=== PATIENT | male | born 1995 | race African-American/Black ===

== ENCOUNTER 2022-11-10 09:25 | Emergency (ER) | payer SELFPAY ==
[2022-11-10] VITALS (26 sets, daily range): BP systolic 120–132; BP diastolic 58–90; PULSE 62–92; RESP 11–26; TEMP 36.8; O2SAT 93–100
[2022-11-10] MEDS: Buprenorphine/Naloxone 2 mg/0.5 mg FILM 1 EACH SL (09:46)
[2022-11-10] MEDS: ACETAMINOPHEN 1,000 MG/100 ML BTL 400 MG IVPB (10:03)
[2022-11-10] MEDS: Ondansetron 4 MG/2 ML VIAL IVP (10:03)
[2022-11-10] MEDS: Ketorolac 15 MG/ML VIAL IVP (10:03)
[2022-11-10] MEDS: Normal Saline 1,000 ML 1000 ML IV (10:04)
--- NOTE | 2022-11-10 10:13 | W.ED.GENAD ---
Discharge Plan Disposition Patient Disposition: Home Discharge Details Clinical Impression: Acute opioid withdrawal Primary Care Provider: None,None ED Provider: Maria Antonia Pillai Home Meds and New Rx's Prescriptions: New ondansetron 4 mg tablet,disintegrating 4 mg PO Q8-10H 4 Days Qty: 12 0RF Discharge Instructions Additional Instructions: Please follow-up with [facility] on Saturday, they like to meet with you in the office and get you established with resources Call the [facility] clinic or go to the clinic to establish care for opioid treatment Zofran as needed for nausea and vomiting Please refer to resources from nurse wound care today and return earlier should you have new or worsening complaints Referrals: [facility] [Provider Group] [facility] [Outside] - 1 day [facility] [Outside] - 1 day Discharge Data Discharge Date/Time-TO BE ENTERED AT DEPARTURE: 11/10/22 12:56 Medical Decision Making 27-year-old gentleman in acute opioid withdrawal, fully alert and oriented, will initiate cane and recovery, Suboxone sublingual, Toradol, Zofran, fluids At time of reassessment, patient looks markedly improved and feels comfortable discharge home Unfortunately this patient has significant lack of resources and no telephone access I did speak with [facility] recovery and they would like to see him on Saturday in the office, he will try to take RCT bus for assessment I also tried to call the [facility] clinic to establish care, they were not available readily on the weekend and so patient will be encouraged to call the [facility] clinic to establish care on Saturday, he will return tomorrow for another dose of sublingual Suboxone He was given a prescription for Zofran for home Our nurse wound care was involved to supply patient with resources for transportation, food, and longterm Patient has been calm, cooperative, and attentive throughout this encounter He will follow-up closely and return earlier should he have new or worsening complaints Medical Records Medical records reviewed: Yes I reviewed the patient's medical records. HPI General Date/Time Provider Initiated Documentation: 11/10/22 09:31. HPI Narrative: This 27-year-old male presents with report of acute fentanyl withdrawal. Patient states he uses approximately 6 bags daily, last use was last evening. He states this is greater than 12 hours ago and this morning awoke with chills, nausea, malaise. He denies any chest pain or shortness of breath. He has not vomited or had diarrhea per patient. He reports that he smokes and does not inject and denies any additional illicit drug use or alcohol. Related Data Home Medications Medication Instructions Recorded Confirmed ondansetron 4 mg disintegrating 4 mg PO Q8-10H 4 days #12 tabs 11/10/22 tablet Previous Rx's Medication Instructions Recorded ondansetron 4 mg disintegrating 4 mg PO Q8-10H 4 days #12 tabs 11/10/22 tablet Allergies Allergy/AdvReac Type Severity Reaction Status Date / Time No Known Allergies Allergy Verified 11/10/22 10:29 General Stated Complaint: DrugWithdr/MAT MOSHE: 3 PFSH All Active Problems (Updated 11/10/22 @ 12:37 by MOLLY Amezcua) Acute opioid withdrawal (Acute) Social History Smoking/Tobacco Use Status: Current-Occasional Tobacco Type: cigarettes Smoking risk assessment performed?: Yes Alcohol Intake: never Drug use: Daily Substance use type: marijuana, heroin, amphetamines, opiates, club/senior product designer drugs and other Details: Pt last smoked heroin/fentanyl last night around 10pm. is here for heroin withdrawal. Additional Social history: Pt states he is homeless, staying outside. Pt states he does not have people around to help Exam Const General: cooperative, comfortable and acute distress Eyes Pupils: PERRL Resp Effort & Inspection: normal respiratory effort Auscultation: clear to auscultation bilaterally Cardio Rate: regular rate Rhythm: regular rhythm Skin Other: diaphoretic Neuro General: patient alert and patient oriented x3 Cranial Nerves: CN's II-XI intact bilaterally Cognition: normal cognition Speech: speech normal Course Vital Signs Vital signs: Vital Signs Temperature 36.8 C 11/10/22 09:18 Pulse 67 11/10/22 09:18 Respiratory Rate 14 11/10/22 09:18 Blood Pressure 132/79 11/10/22 09:18 Pulse Oximetry 100 11/10/22 09:18 Temperature 36.8 C 11/10/22 09:18 Temperature Source Oral 11/10/22 09:18 Pulse 67 11/10/22 09:18 Respiratory Rate 14 11/10/22 09:18 Blood Pressure 132/79 11/10/22 09:18 Blood Pressure Position Supine 11/10/22 09:18 Pulse Oximetry 100 11/10/22 09:18 Oxygen Delivery Method Room Air 11/10/22 09:18 Oxygen Flow Rate 0 11/10/22 09:18
--- NOTE | 2022-11-10 11:36 | NUR.NOTE ---
Nursing Note: Timmy from [facility] called after speaking with the pt. pt is interested in detoxing as an outpaient and discussed referral to [facility]. There was a discussion about the patient working with a substance abuse counselor at [facility]. The pt is interested in trying to go through [facility]. portable phone provided to the pt to place a call.
--- NOTE | 2022-11-10 12:45 | CMPROGNOTE_ITS ---
- If Service Date Differs Date of service: 11/10/22 Time of Service: 12:45 Care Management Progress Note Megha was seen in the ER today and is ready for discharge. CM was notified by ER provider that Megha has been without housing for an extended period of time. Pt is reportedly familiar with [facility], but has been unsuccessful reaching a [employer] electric cutter operator when he calls. CM provided Megha with resources for [employer], [employer], [employer] and waited with pt until he was able to personally speak with a [facility] electric cutter operator. Megha is encouraged to go to [facility] Saturday for additional help with resources, if needed.
== END 2022-11-10 12:56 | disposition home or self-care (01) ==
PROVIDERS: Emergency Provider Physician Assistant
DX: F11.23 Opioid dependence with withdrawal (principal); R61 Generalized hyperhidrosis
CPT/HCPCS: 96361; 96365; 96375; 99284; J0131; J1885; J2405

== ENCOUNTER 2024-04-07 10:51 | Emergency (ER) | payer MEDICAID, SELFPAY ==
[2024-04-07 10:57] VITALS: BP 136/82; PULSE 88; RESP 14; TEMP 37.5; O2SAT 99
[2024-04-07] MEDS: Acetaminophen 500 MG TAB 1000 MG PO (11:14)
[2024-04-07] MEDS: Ibuprofen 600 MG TAB PO (11:14)
--- NOTE | 2024-04-07 11:50 | DI.RAD_ITS ---
Exam(s) XR WRIST LT COMPLETE EXAM: XR WRIST LT COMPLETE CLINICAL HISTORY: WRIST PAIN. TECHNIQUE: 2D digital imaging was performed of the left wrist. Three images were obtained. PA, obl ique and lateral views were obtained. COMPARISON: No exams were available for comparison FINDINGS: BONES: No acute fracture is present. No bony destructive lesion is seen. 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 JOINTS: The carpal bones are normally aligned. SOFT TISSUE: Normal. IMPRESSION: No acute abnormality. DATA REPOSITORY: RADIATION DOSE DELIVERED:
--- NOTE | 2024-04-07 11:51 | DI.RAD_ITS ---
Exam(s) XR SHOULDER RT COMPLETE 2+V EXAM: XR SHOULDER RT COMPLETE 2+V CLINICAL HISTORY: SHOULDER PAIN. TECHNIQUE: 2D digital imaging was performed of the right shoulder. Four images were obtained. AP, Grashey, Y-view and axillary views were obtained. COMPARISON: No exams were available for comparison FINDINGS: BONES: No acute fracture is present. No bony destructive lesion is seen. JOINTS: No dislocation present. The joint spaces are well maintained. SOFT TISSUE: Normal. IMPRESSION: Unremarkable radiographs of the right shoulder. DATA REPOSITORY: RADIATION DOSE DELIVERED:
[2024-04-07 12:11] VITALS: RESP 18
--- NOTE | 2024-04-07 15:10 | ED.GENADUL_ITS ---
Discharge Plan Disposition Patient Disposition: Home Condition: Stable Discharge Details Clinical Impression: Left wrist pain, Pain in right shoulder Primary Care Provider: None,None ED Provider: Laya Boogie Home Meds and New Rx's Prescriptions: No Action No Known Home Meds Discharge Instructions Instructions: Joint Pain Additional Instructions: * There is no sign of trauma dislocation injury or infection. Please continue Motrin and Tylenol as needed HPI General Date/Time Provider Initiated Documentation: 04/07/24 11:08 . Limitations to Documentation: no limitations . Information obtained by: patient . HPI Narrative: 29-year-old gentleman with known medical history presents for evaluation of right shoulder pain and left hand pain. He reports acute onset of symptoms yesterday at 7 PM. He states that he was driving in a car and all of the sudden he had this severe pain in his left hand. It is associated with a red discoloration and a lump. He states that he cannot move it. He reports that he has dislocated his right shoulder though he denies any trauma. He states that it just happened. No medications given prior to arrival. He denies any trauma. Denies any fever chills or other concerns for infection. Related Data Home Medications ?Medication ?Instructions ?Recorded ?Confirmed Unknown [No Known Home Meds] 04/07/24 04/07/24 Allergies Allergy/AdvReac Type Severity Reaction Status Date / Time No Known Allergies Allergy Verified 04/07/24 11:00 General Stated Complaint: Trauma MOSHE: 3 Exam Narrative Exam Narrative: Review of Systems: All systems reviewed & are unremarkable except as noted in HPI and below Patient refusing to move arms, but will scream before I even touch him NCAT PERRL, normal conjunctiva RRR Unlabored respiratory effort clear bilaterally The right shoulder has a full range of motion, there is no dislocation or deformity appreciated, his right upper extremity is neurovascularly intact with sensation intact throughout The left hand is noted to be held in an unnatural position when he tells me that it is hurting, but during the examination and discussion, he will move it freely and use it to reposition himself or support himself on the bed without any discomfort. He points to a nonexistent bump that is not palpable or visualized by me, he is also indicating redness on his hand which appears to be discoloration consistent with a magic marker Course Vital Signs Vital signs: Vital Signs Temperature 37.5 C 04/07/24 10:57 Pulse 88 04/07/24 10:57 Respiratory Rate 14 04/07/24 10:57 Blood Pressure 136/82 04/07/24 10:57 Pulse Oximetry 99 04/07/24 10:57 Temperature 37.5 C 04/07/24 10:57 Pulse 88 04/07/24 10:57 Respiratory Rate 18 04/07/24 12:11 Respiratory Effort Normal 04/07/24 11:04 Blood Pressure 136/82 04/07/24 10:57 Blood Pressure Position Sitting 04/07/24 10:57 Pulse Oximetry 99 04/07/24 10:57 Oxygen Delivery Method Room Air 04/07/24 10:57 Oxygen Flow Rate 0 04/07/24 10:57 Pain Level 10 04/07/24 10:57 Medical Decision Making Evaluation of atraumatic right shoulder and left hand pain. The patient reports that his shoulder was dislocated and that it he cannot move his hand. On examination, the shoulder is not dislocated and I have no signs or suspicion for traumatic injury or any infectious etiology given his normal vital signs and normal examination. His left hand does appear to have skin discoloration consistent with a magic marker, but not with cellulitis or other infectious etiology. He has no joint swelling or deformity of the wrist. He is using the bilateral upper extremities normally when he is distracted. I have run the [facility] ent's [employer] and noted that he has had practice that he injections for opiates, and I suspect that there is a component of drug-seeking behavior. I have no suspicion neurologic etiology. X-rays of the right shoulder and the left wrist were obtained given the patient's pain out of proportion on examination. Radiology reports were reviewed and and these are unremarkable for any acute bony process. Patient was provided Tylenol and Motrin for pain. Recommend that he continue this at home. At this time no emergent findings are identified. At the time of discharge, the patient became agitated, clearly using both hands, and refused to sign paperwork at the insistence of his girlfriend who was on the phone demanding that he get an MRI because he is obviously having a stroke. The patient required removal from the emergency department by security Quality:[facility] Health Related Social Needs: No Data to Display PFSH All Active Problems Pain in right shoulder (Acute) Left wrist pain (Acute) Social History Smoking/Tobacco Use Status: Current-Occasional Tobacco Type: cigarettes Smoking risk assessment performed?: Yes Alcohol Intake: never Drug use: Daily Substance use type: marijuana, heroin, amphetamines, opiates, club/freelance web designer drugs and other Details: Pt last smoked heroin/fentanyl last night around 10pm. is here for heroin withdrawal. Additional Social history: Pt states he is homeless, staying outside. Pt states he does not have people around to help PAWSS Have you Been Recently Intoxicated or Drunk Within the Last 30 days?: No Have you Ever Experienced Previous Episodes of Alcohol Withdrawal?: No Have you ever Experienced Withdrawal Seizures?: No Have you ever Experienced Delirium Tremens(DT)s?: No Have you ever undergone Alcohol Rehabilitation Treatment (i.e, inpt ot outpatient treatment programs)?: No Have you ever Experienced Blackouts?: No Have you ever Combined Alcohol with other Downers within the last 90 days?: No Have you ever Combined Alcohol with any other Substance of Abuse during the last 90 days?: No Positive Blood Alcohol level on Presentation? [PCS.BAL]: No Evidence of Increased Autonomic Activity (i.e. HR>120, tremor, sweating, agitation, nausea)?: No Result: 0
== END 2024-04-07 12:12 | disposition home or self-care (01) ==
LOC: ER 12:19
PROVIDERS: Emergency Provider Emergency Medicine
DX: M25.532 Pain in left wrist (principal); M25.511 Pain in right shoulder
CPT/HCPCS: 99284; 73030; 73110; 99283

== ENCOUNTER 2024-06-10 21:13 | Emergency (ER) | payer MEDICAID, SELFPAY ==
[2024-06-10 21:23] VITALS: BP 148/82; PULSE 84; RESP 18; TEMP 36.6; O2SAT 96
--- NOTE | 2024-06-10 21:39 | W.ED.GENAD ---
Discharge Plan Disposition [facility] Condition: Stable Discharge Details Clinical Impression: Wasp sting Primary Care Provider: None,None ED Provider: Muna Valentine Home Meds and New Rx's Prescriptions: No Action No Known Home Meds Discharge Instructions Instructions: Insect Bites and Stings ED Additional Instructions: You were seen in the emergency department today for evaluation after a wasp sting. In our department you had a full physical examination performed, and were monitored over a period of time and did not develop an allergic reaction. It is safe for you to leave the hospital, and please be mindful of any symptoms that develop. Specifically, some people note skin changes after stings, itching, and rarely shortness of breath. If you develop any of the symptoms you need to be reevaluated by physician, and can return to the emergency department anytime. Thank you for allowing us to be part of your care. HPI General Mode of arrival: ambulatory. Date/Time Provider Initiated Documentation: 06/10/24 21:13. Limitations to Documentation: no limitations. Information obtained by: patient, police and old records reviewed. HPI Narrative: HPI: This is a 29-year-old male patient without significant past medical history is presenting for evaluation after a wasp sting. The patient was the unfortunate witness of a cardiac arrest event, his friend suffered an overdose and was declared on scene. The patient was arrested by PD for outstanding warrants, and during his arrest was stung in the right anterior neck by a large wasp. The patient states that he has not had any known allergic reactions to wasps or bees in the past. He currently states that he is not experiencing any shortness of breath or throat swelling, has not noted any rashes or itching, has not had any nausea or vomiting. The patient states that he is mostly feeling quite upset, due to the multiple stressful events that occurred tonight. He states that he is otherwise without acute concern or medical complaint. He did not receive any medications prior to arrival, bee sting occurred approximately 45 minutes prior to arrival at our facility. Exam: Gen: Awake and alert, in no apparent distress HEENT: Non-icteric sclera, pupils equal and reactive bilaterally, posterior pharynx without erythema or edema. Speaks in a clear tearful voice Neck: Supple, full range of motion. The patient has a small papule in the area of the sting, without surrounding redness. Stingers removed Lungs: No apparent respiratory distress, normal respiratory effort. No stridor, lung sounds clear and equal without wheezing, rhonchi, rales CV: Appears well perfused, heart with regular rate and rhythm, strong distal pulse Abdomen: Non-distended, soft, nontender to palpation MSK: Moves 4 extremities without apparent limitation in ROM Skin: Visualized skin without rashes, cyanosis. Specifically, the patient does not have any concerning skin changes such as urticaria Neuro: Normal Gait, no obvious focal deficits or facial asymmetry. Speaks in full, clear sentences. Psych: Appropriate for situation. MDM: This is a 29-year-old male patient presenting for evaluation of a bee sting. My differential certainly included anaphylaxis, though the patient has no involvement of his respiratory, GI, or skin systems at this time. The patient has a very mild local reaction without severe urticaria or other concerning findings. The patient is otherwise appropriately distressed but not endorsing any suicidal or homicidal ideation at this time, is awake, alert, and hemodynamically appropriate. After removal of the stinger, we will observe the patient in the emergency department to ensure that he does not develop any symptoms of allergic reaction or anaphylaxis. ED Course: On reassessment, the patient remains without skin changes, shortness of breath, airway swelling, wheezing or stridor. His vital signs remain stable, he awakens easily to quiet voice, and is able to participate in my assessment completely. He does endorse use of THC and fentanyl, but I have a low concern for overdose, withdrawal syndrome, and do not see any indication for airway watch. At this time, the patient has had a full medical evaluation and is safe for discharge to police custody. They are hemodynamically stable, ambulatory, and tolerating PO. They are understanding of the follow-up plan and return precautions. They left our facility without incident. Muna Valentine MD Related Data Home Medications ?Medication ?Instructions ?Recorded ?Confirmed Unknown [No Known Home Meds] 04/07/24 06/10/24 Allergies Allergy/AdvReac Type Severity Reaction Status Date / Time No Known Allergies Allergy Verified 06/10/24 21:27 General Stated Complaint: InsectBite MOSHE: 4 Course Vital Signs Vital signs: Vital Signs Temperature 36.6 C 06/10/24 21:23 Pulse 84 06/10/24 21:23 Respiratory Rate 18 06/10/24 21:23 Blood Pressure 148/82 H 06/10/24 21:23 Pulse Oximetry 96 06/10/24 21:23 Temperature 36.6 C 06/10/24 21:23 Temperature Source Oral 06/10/24 21:23 Pulse 84 06/10/24 21:23 Respiratory Rate 18 06/10/24 21:23 Respiratory Effort Normal, Non-Labored 06/10/24 21:27 Blood Pressure 148/82 H 06/10/24 21:23 Blood Pressure Position Sitting 06/10/24 21:23 Pulse Oximetry 96 06/10/24 21:23 Oxygen Delivery Method Room Air 06/10/24 21:23 Oxygen Flow Rate 0 06/10/24 21:23 Pain Level 0 06/10/24 21:23 Medical Decision Making Quality:SDOH Health Related Social Needs: No Data to Display PFSH All Active Problems (Updated 06/10/24 @ 22:07 by Muna Valentine MD) Wasp sting (Acute) Social History Smoking/Tobacco Use Status: Current-Occasional Tobacco Type: cigarettes Smoking risk assessment performed?: Yes Alcohol Intake: never Drug use: Daily Substance use type: marijuana, heroin, amphetamines, opiates, club/ornamental metalwork designer drugs and other Additional Social history: Pt states he is homeless, staying outside. Pt states he does not have people around to help
[2024-06-10 21:57] VITALS: BP 156/77; PULSE 77; RESP 12; TEMP 36.1; O2SAT 99
== END 2024-06-10 22:12 ==
PROVIDERS: Emergency Provider Emergency Medicine
DX: T63.461A Toxic effect of venom of wasps, accidental (unintentional), initial encounter (principal); F17.210 Nicotine dependence, cigarettes, uncomplicated; Y92.89 Other specified places as the place of occurrence of the external cause
CPT/HCPCS: 99283